=== PATIENT | male | born 1995 | race Caucasian/White ===

== ENCOUNTER 2024-05-09 11:11 | Emergency (ER) | payer OTHER, SELFPAY ==
--- NOTE | ~2024-05-09 | XR_ITS ---
EXAMINATION: XR CHEST CLINICAL INFORMATION: productive cough COMPARISON: None available. TECHNIQUE: 2 views of the chest were obtained. FINDINGS: No significant abnormality is noted involving the heart, lungs, mediastinum, bony thorax or soft tissues. XR/XR chest 2V IMPRESSION: Unremarkable chest examination. Electronically signed by: Anastacio Kwok MD 05/09/2024 01:10 PM [facility]
[2024-05-09 11:29] VITALS: BP 111/70; PULSE 79; RESP 18; TEMP 36.9; O2SAT 98; BMI 22.3
--- NOTE | 2024-05-09 11:29 | ED_ITS ---
HPI - URI/Sore Throat General Chief Complaint: Upper Respiratory Symptoms Stated Complaint: Congestion, sore throat Time Seen by Provider: 05/09/24 12:47 Source: patient and family Mode of arrival: ambulatory Limitations: no limitations History of Present Illness ED Provider: Dickson Garland PA-C HPI Narrative: 28 yo male presenting to the ER for evaluation of 4 days of runny nose, nasal congestion, post-nasal drip, sinus pressure, productive cough, nausea, body aches. 3 y/o son is sick at home and mom is also having similar symptoms. no difficulty breathing, chest pain, abdominal pain. he has had decreased PO intake for the last few days because of nausea. MD elicited complaint: cough, nasal congestion, sinus pain and other Onset (ago): day(s) Consistency: progressively worsening Severity: moderate Description of mucous: clear Able to tolerate fluids by mouth: Yes Exacerbating factors: nothing Relieving factors: nothing Context: sick contacts Associated symptoms: fever, chills, myalgias, headache, rhinorrhea, nasal congestion, sore throat, cough and nausea Treatments prior to arrival: none Related Data Previous Rx's ?Medication ?Instructions ?Recorded amoxicillin 875 mg-potassium 1 tab PO BID #14 tabs 05/09/24 clavulanate 125 mg tablet Allergies Allergy/AdvReac Type Severity Reaction Status Date / Time No Known Allergies Allergy Verified 05/09/24 11:32 Review of Systems Review of Systems: Yes all other systems are reviewed and are negative [facility] Social History Social History Advance Directives: No Advance Directives Information Provided: Yes Physical Exam Vital Signs: Vital Signs: Last Vital Signs Temp 98.4 F 05/09/24 11:29 Pulse 79 05/09/24 11:29 Resp 18 05/09/24 11:29 BP 111/70 05/09/24 11:29 Pulse Ox 98 05/09/24 11:29 O2 Del Method Room Air 05/09/24 11:29 BMI result Body Mass Index 22.3 Appearance: Alert. Oriented X3. No acute distress. Pale Head: normocephalic, atraumatic. Eyes: Pupils equal, round and reactive to light. ENT: Pharynx with moderate posterior erythema, no tonsillar swelling. uvula midline, normal voice Neck: Normal inspection. CVS: Normal heart rate and rhythm. Pulses normal. Respiratory: No respiratory distress. Breath sounds normal. Abdomen: Soft and nontender. +BS x4 Skin: Skin warm and dry. Normal skin color. Normal skin turgor. No rashes. Extremities: No lower extremity edema. No joint swelling. Neuro/psych: Oriented X 3. grossly normal, nonfocal. Normal speech and cognition. Medical Decision Making Medical Decision Making [facility] Narrative: 28 yo male presents with flu like symptoms for the last 4 days with known sick contacts. VS are stable. physical exam is largely unremarkable. he is here with his mother who has similar symptoms. tested positive for the flu today. strep negative but his mother is positive and he has a sore throat too, his symptoms started before hers - will empirically treat. cxr without PNA stable for d/c home with supportive care for flu and abx for presumed strep Differential Diagnosis Differential Diagnoses: The differential diagnosis associated with the presentation includes strep, covid, flu, rsv, other viral syndrome, bronchitis, pneumonia, gastroenteritis, sinusitis, dehydation Lab Data [facility] Lab Attestation statement: I reviewed the patient's lab results. Labs: Lab Results 05/09/24 05/09/24 Range/Units 11:34 11:35 Influenza Type A (PCR) POSITIVE A (Negative) Influenza Type B (PCR) NEGATIVE (Negative) RSV RNA Qual (PCR) NEGATIVE (Negative) SARS-CoV-2 RNA (RT-PCR) NEGATIVE (Negative) S. pyogenes GrpA SERVANDO Negative (Negative) Independent Interpretation I performed an independent interpretation of an: Plain X-Ray Interpretation: no focal infiltrate or PNA Radiology Impression Discussion of test interpretation with radiology: I have reviewed the radiologist's reading. Independent Historian Clinical information obtained from an independent historian. History obtained from or confirmed by: Parent Prescription Management I considered prescription management with: Antiviral and Antibiotic Critical Care Time Critical Care Time Critical Care Time: No Discharge Plan Discharge Clinical Impression: Influenza Patient Disposition: Home, Self-Care Instructions: Influenza (DC) Additional Instructions: You were found to be Influenza A POSITIVE today. Your chest x-ray and oxygen levels were normal. Take the prescribed antibiotics for strep as directed, complete the entire course and do not miss any doses Do not go out in public while you are not feeling well Take over the counter cold/flu medications as needed for your symptoms. Take Tylenol and/or Motrin as needed for fevers and body aches. Follow up with your doctor we needed If you develop new or worsening symptoms call 911 or come back to the ER for further evaluation. Prescriptions: New amoxicillin-pot clavulanate 875-125 mg tablet 1 tab PO BID Qty: 14 0RF Print Language: Cambodian
[2024-05-09 11:53] LABS: IDNOW Serial# 58CA691E; Strep A Nucleic Acid Negative (Negative)
[2024-05-09 12:25] LABS: Influenza A PCR POSITIVE (Negative); Influenza B PCR NEGATIVE (Negative); Resp Syncy Virus RNA Qual PCR NEGATIVE (Negative); SARS COV2 PCR INHOUSE NEGATIVE (Negative)
[2024-05-09 14:22] VITALS: BP 111/70; PULSE 79; RESP 18; TEMP 36.9; O2SAT 98
--- OUTSIDE RECORDS SUMMARY | 2024-05-09 14:32 | XMS_ITS | Encounter Summary ---
Author Organization [facility] Address [address] [place] [address] Phone Care Team Providers Care [employer] Supervisor Name Role Phone Unavailable Primary Care Provider Unavailabl e Encounter Details Date Type Department Care Team (Late st Contact Info) Description 12/03/2016 Conversion Encounter [facility] - [address] [id number] Social History Tobacco Use Types Packs/Day Years Used Date Smoking Tobacco: Unknown Comments:Unknown if ever smo ked Sex and Gender Information Value Date Recorded Sex Assigned at Not on file Legal Sex Male 5:07 PM EDT Gender Identity Not on file Sexual Orientation Not on file documented as of this encounter Plan of Treatment Not on file documented as of this encounter Visit Diagnoses Not on filedocumented in this encounter
--- OUTSIDE RECORDS SUMMARY | 2024-05-09 14:32 | XMS_ITS | Encounter Summary ---
Author Organization [facility] Address [address] [place], [place] [id number] Phone Care Team Providers Care Help Desk Intern Name Role Phone Unavailable Primary Care Provider Unavailabl e Encounter Details Date Type Department Care Team (Late st Contact Info) Description 03/14/2013 Documentation [facility] [place] Family Medicine [address] [place] [address] Family Medicine, Physician [facility] [address] [place], [place] [phone] Social History Tobacco Use Types Packs/Day Years Used Date Smoking Tobacco: Never Assessed Sex and Gender Information Value Date Recorded Sex Assigned at Not on file Legal Sex Male 5:07 PM EDT Gender Identity Not on file Sexual Orientation Not on file documented as of this encounter Plan of Treatment Not on file documented as of this encounter Visit Diagnoses Not on filedocumented in this encounter
--- OUTSIDE RECORDS SUMMARY | 2024-05-09 14:32 | XMS_ITS | Clinical Summary ---
Author Organization [facility] Address [address] [place] [id number] Phone Care Team Providers Care Machine Clerical Verifier Name Role Phone Unavailable Primary Care Provider Unavailabl e Allergies No known active allergies Medications No known medications Active Problems Problem Noted Date Diagnosed Date Allergic rhinitis 09/04/2013 Attention deficit hyperactivity disorder 014 Other proteinuria 09/04/2013 Immunizations Name Administration Dates Next Due DTP 02/19/1999, 8,1997,08/09 DTaP 5 01/26/2002 H1N1 07/10/2009 HPV, Quadrivalent 03/06/2014,09/04/2013,07/29/19 13 Hep A, ped/adol 09/13/2014,09/04/2013 Hep B, ped/adol 08/21/1998,1997,1997 Hib (PRP-T) 08/21/1998, 8,1997,08/09 IPV 01/26/2002,1997 Influenza, injectable, quadrivalent 01/28/2016 Influenza, injectable, quadr ivalent, preservative free 06/30/2017,01/02/2015,09/04/2013 MMR 01/26/2002,07/31/1998 Meningococcal Conj (Menactra) MCV4P 10/02/2015,0 07/10/2009 OPV 08/21/1998,1997 Tdap 07/10/2009 Varicella 07/10/2009,07/31/1998 Family History Relation Name Status Comments Half-Brother 1 Ej Dior Alive Half brother (M): Asthma Half-Brother 2 Yaya Mattson Alive Half brother (M): Alive and well Half-Sister Fei Guerrero Alive Half sister ( M): Alive and well Mother Mother: Anxiety , Depression Other Family history of Asthma, Family history of Strabismus/amblyopia, Family history of Sudden /ME under 55, No family history of *CVA/Stroke, Family history of *Heart Disease, Family history of ADD/ADHD, Family history of Elevated cholesterol, Family history of Diabetes mellitus, Family history of *Sudden /ME under 55, Family history of *Dental caries, Family history of Migraines Social History Tobacco Use Types Packs/Day Years Used Date Smoking Tobacco: Some Days Comments:Unknown if ever smo ked Sex and Gender Information Value Date Recorded Sex Assigned at Not on file Legal Sex Male 5:07 PM EDT Gender Identity Not on file Sexual Orientation Not on file Last Filed Vital Signs Vital Sign Reading Time Taken Comments Blood Pressure 125/85 06/30/2017 10:29 AM EDT Pulse 73 06/30/2017 10:29 AM EDT Temperature 35.9 ??C (96.7 ??F) 06/30/2017 10:29 AM E DT Respiratory Rate - - Oxygen Saturation - - Inhaled Oxygen Concentration - - Weight 69.5 kg (153 lb 3.2 oz) 06/30/2017 10:29 AM EDT Height 172.1 cm (5' 7.75 ) 06/30/2017 10:29 AM E DT Body Mass Index 23.47 06/30/2017 10:29 AM EDT Plan of Treatment Health Maintenance Due Date Last Done Comments DTaP,Tdap,and Td Vaccines (7 - Td or Tdap) 07/11/2019 07/10/2009, 01/26/2002, 02/19/1999, Additional history exists Influenza Vaccines (#1) 2023 07/01/19 18, 01/28/2016, 01/02/2015, Additional history exists COVID-19 Vaccine ( season) 2023 HIB Vaccines Completed 08/21/1998, 01/18, 1997, Additional history exists Hepatitis B Vaccines Completed 08/21/1998, 1997, 1997 IPV Vaccines Completed 01/26/2002, 08/1998, 1997, Additional history exists MMR Vaccines Completed 01/26/2002, 07/31/1998 Varicella Vaccines Completed 07/10/2009, 07/31/1998 HPV Vaccines Completed 03/06/2014, 08/17, 07/28/2012 Hepatitis A Vaccines Completed 09/13/2014, 09/05/19 14 Meningococcal Vaccine Completed 10/02/2015, 010 Men B Vaccine Aged Out No longer elig ible based on patient's age to complete this topic Pneumococcal Vaccine Aged Out No long er eligible based on patient's age to complete this topic Insurance [facility] PUBLIC DIRECT
--- OUTSIDE RECORDS SUMMARY | 2024-05-09 14:32 | XMS_ITS | Encounter Summary ---
Author Organization [facility] Address [address] [place], [place] [address] Phone Care Team Providers Care Bus Info Consultant Name Role Phone Unavailable Primary Care Provider Unavailabl e Encounter Details Date Type Department Care Team (Late st Contact Info) Description 07/05/2012 Documentation [facility] [place] [address] [place] [address] Family Medicine, Physician [facility] [address] [place], [place] [phone] Social History Tobacco Use Types Packs/Day Years [...]
--- OUTSIDE RECORDS SUMMARY | 2024-05-09 14:32 | XMS_ITS | Encounter Summary ---
Author Organization [facility] Address [address] [place], [place] [phone] Phone Care Team Providers Care Business Area Director Name Role Phone Unavailable Primary Care Provider Unavailabl e Encounter Details Date Type Department Care Team (Late st Contact Info) Description 07/05/2012 Documentation [facility] [place] Family Medicine [address] [place] [address] Family Medicine, Physician [facility] [address] [place], [place] [phone] Social History Tobacco Use Types Packs/Day Years [...]
== END 2024-05-09 14:22 | disposition home or self-care (01) ==
PROVIDERS: Physician Assistant; Emergency Provider Emergency Medicine
DX: J10.1 Influenza due to other identified influenza virus with other respiratory manifestations (principal); R11.2 Nausea with vomiting, unspecified; M79.10 Myalgia, unspecified site; R05.9 Cough, unspecified; Z03.818 Encounter for observation for suspected exposure to other biological agents ruled out
CPT/HCPCS: 0241U; 71046; 87651; 99282; 99283

== ENCOUNTER → 2024-05-09 11:30 | Outpatient (BNV) | payer OTHER, SELFPAY | PROVIDERS: Emergency Provider Emergency Medicine; Visit Provider Radiology Diagnostic Radiology | DX: R05.9 Cough, unspecified (principal) | CPT/HCPCS: 71046 ==